=== PATIENT | male | born 1995 | race Two or more races ===

== ENCOUNTER 2024-07-28 19:14 | Emergency (ER) | payer OTHER, SELFPAY ==
--- NOTE | ~2024-07-28 | XR_ITS ---
EXAMINATION: XR shoulder RT min 2V DATE: 07/28/2024 21:22 INDICATION: Right shoulder pain. TECHNIQUE: 4 views of right shoulder were obtained. COMPARISON: None. FINDINGS: Alignment is normal. No fracture. Joint spaces are normal. IMPRESSION: 1. No fracture. Reviewed, dictated and finalized at location A. PUMP OPERATOR IMPRESSION: 1. No fracture.
[2024-07-28 19:17] VITALS: BP 149/73; PULSE 103; RESP 15; TEMP 36.7; O2SAT 99
--- NOTE | 2024-07-28 21:54 | ED.GENADULT ---
HPI - General Adult General Chief complaint: Extremity Injury, Upper Stated complaint: right shoulder injury Time Seen by Provider: 07/28/24 21:10 History of Present Illness HPI narrative: 29-year-old male presenting to the emergency department for evaluation for chronic right shoulder pain that has been worsening. Patient was told he was going to need surgery for a tendon issue in his shoulder but patient ultimately had to leave the country prior to surgical repair. Related Data Allergies Allergy/AdvReac Type Severity Reaction Status Date / Time No Known Allergies Allergy Verified 07/28/24 19:15 Review of Systems Review of Systems: All systems reviewed & are unremarkable except as noted in HPI and below Exam Narrative: APPEARANCE: Well appearing, no pain, no distress, well-nourished. HEAD: normocephalic, atraumatic. EYES: PERRLA/EOMI, conjunctivae clear. NOSE: Normal no drainage RESPIRATORY: Airway patent, respirations nonlabored. Clear to auscultation bilaterally, no rales, rhonchi, wheezing. CARDIOVASCULAR: Regular rate and rhythm without murmurs rubs or gallops. ABDOMINAL: Soft, nontender, nondistended, normal bowel sounds MUSCULOSKELETAL: Tenderness to posterior right shoulder, normal range of motion NEURO: Alert. Cranial nerves II through XII intact. Grossly intact SKIN: Warm, dry. Normal Color Course Vital Signs Vital signs: Vital Signs Temperature 98.1 F 07/28/24 19:17 Pulse Rate 103 H 07/28/24 19:17 Respiratory Rate 15 07/28/24 19:17 Blood Pressure 149/73 H 07/28/24 19:17 Pulse Oximetry 99 07/28/24 19:17 Oxygen Delivery Room Air 07/28/24 19:17 Temperature 98.5 F 07/28/24 22:07 Pulse Rate 61 07/28/24 22:07 Respiratory Rate 14 07/28/24 22:07 Blood Pressure 127/67 07/28/24 22:07 Pulse Oximetry 99 07/28/24 22:07 Oxygen Delivery Room Air 07/28/24 19:17 Medical Decision Making [facility] Narrative Medical decision making narrative: 29-year-old male presents to the emergency department for evaluation for right shoulder pain. X-ray was negative for acute fracture dislocation. Suspect patient does have a rotator cuff of injury versus tendinitis. Patient was encouraged to have close follow-up with Orthopedics. All questions concerns were addressed. Differential Diagnosis Differential Diagnosis: Right shoulder strain, shoulder dislocation Vital Signs Vital Signs: Vital Signs Temperature 98.1 F 07/28/24 19:17 Pulse Rate 103 H 07/28/24 19:17 Respiratory Rate 15 07/28/24 19:17 Blood Pressure 149/73 H 07/28/24 19:17 Pulse Oximetry 99 07/28/24 19:17 Oxygen Delivery Room Air 07/28/24 19:17 Temperature 98.5 F 07/28/24 22:07 Pulse Rate 61 07/28/24 22:07 Respiratory Rate 14 07/28/24 22:07 Blood Pressure 127/67 07/28/24 22:07 Pulse Oximetry 99 07/28/24 22:07 Oxygen Delivery Room Air 07/28/24 19:17 Discharge Plan Discharge Clinical Impression: Right shoulder strain Patient Disposition: Home, Self-Care Condition: Stable Instructions: Antibiotic Form, Shoulder Pain (ED) Additional Instructions: Tylenol for pain control. Naprosyn for inflammation and pain control. Flexeril for muscle spasm. Sling for arm support and comfort. Have close follow-up with Orthopedics. If you have any worsening symptoms then please call or return to the emergency department. Patient Language: Bulgarian Prescriptions: New naproxen [Naprosyn] 500 mg tablet 500 mg PO BID 7 Days Qty: 14 0RF cyclobenzaprine 10 mg tablet 10 mg PO BID PRN (Reason: muscle spasm) Qty: 14 0RF Follow-up/Referrals: Vipul Tesfaye MD [Physician] - UNKNOWN,DOCTOR [Primary Care Provider] -
[2024-07-28 22:07] VITALS: BP 127/67; PULSE 61; RESP 14; TEMP 36.9; O2SAT 99
== END 2024-07-28 22:33 | disposition home or self-care (01) ==
PROVIDERS: Emergency Provider Emergency Medicine
DX: S43.401A Unspecified sprain of right shoulder joint, initial encounter (principal)
CPT/HCPCS: 73030; 99283; A4565